=== PATIENT | male | born 1985 | race Hispanic/Latino ===

== ENCOUNTER 2019-03-04 13:47 | Emergency (ER) | payer SELFPAY | END 2019-03-04 14:39 | disposition home or self-care (01) | LOC: SCSER 13:47 | DX: R51 Headache (principal); H92.01 Otalgia, right ear; R68.84 Jaw pain; F17.210 Nicotine dependence, cigarettes, uncomplicated | CPT/HCPCS: 99282 ==

== ENCOUNTER 2023-04-09 07:24 | Emergency (ER) | payer SELFPAY ==
[2023-04-09 08:06] LABS: Hematocrit 39.9 % (42.0-52.0); Hemoglobin 13.8 g/dL (14.0-18.0); Mean Corpuscular HGB CONC 34.6 g/dL (32.0-36.0); Mean Corpuscular Hemoglobin 31.4 pg (27.0-31.0); Mean Corpuscular Volume 90.9 fl (78.0-98.0); Mean Platelet Volume 9.7 fL (7.4-10.4); RBC Distribution Width 12.5 % (11.5-14.5); Red Blood Cell (RBC) Count 4.39 mill/uL (4.70-6.10); White Blood Cell (WBC) Count 3.8 10x3/uL (4.8-10.8)
[2023-04-09] MEDS ORDERED: Ketorolac Tromethamine 30 MG/ML VIAL ONE (08:06)
[2023-04-09 08:07] LABS: Delete Auto Diff?? YES; Manual Diff?? YES; Platelet Count 87 10x3/uL (130-400)
[2023-04-09 08:30] LABS: ALT (SGPT) 98 U/L (8-55); AST (SGOT) 136 U/L (5-34); Albumin 5.1 g/dL (3.5-5.0); Alkaline Phosphatase 130 U/L (40-110); Anion Gap 16 mmol/L (10-20); BUN (Urea Nitrogen) 5 mg/dL (8.9-20.6); Bilirubin, Total 0.5 mg/dL (0.2-1.2); Calc. Creatinine Clearance 0 mL/min (70-130); Calcium 9.5 mg/dL (7.8-10.44); Carbon Dioxide 26 mmol/L (22-29); Chloride 103 mmol/L (98-107); Estimated GFR 119; Globulin 3.7 g/dL (2.4-3.5); Glucose 100 mg/dL (70-105); Lipase 109 U/L (8-78); Potassium 3.7 mmol/L (3.5-5.1); Protein, Total 8.8 g/dL (6.0-8.3); Sodium 141 mmol/L (136-145)
[2023-04-09 09:07] LABS: Band 1 % (5-11); CellaVision Operator ID LAB.GE; Eosinophils 3 % (0-10); Lymphocytes 26 % (21-51); Monocytes 9 % (0-10); Neutrophil 51 % (42-75); Platelet Adequacy Comment Platelets Decreased; Polychromasia SLIGHT = 2-3 cells HPF (0-2); Reactive Lymphocytes 8 % (0-10); Total Cell Count 100
== END 2023-04-09 08:58 | disposition home or self-care (01) ==
LOC: ERS 07:24
DX: S30.1XXA Contusion of abdominal wall, initial encounter (principal); F17.210 Nicotine dependence, cigarettes, uncomplicated
CPT/HCPCS: 36415; 80053; 83690; 85025; 96372; 99284; J1885

== ENCOUNTER 2024-12-03 07:43 | Inpatient (IN) | payer SELFPAY ==
[2024-12-03 08:04] LABS: #Basophils 0.07 10x3/uL (0.0-0.2); #Monocytes 0.58 10x3/uL (0.11-0.59); #Neutrophils 3.81 10x3/uL (1.40-6.50); %Basophils 1.1 % (0.0-1.0); %Eosinophils 1.5 % (0.0-10.0); %Lymphocytes 29.5 % (21.0-51.0); %Monocytes 8.9 % (0.0-10.0); %Neutrophils 58.7 % (42.0-75.0); Hematocrit 41.6 % (42.0-52.0); Hemoglobin 14.3 g/dL (14.0-18.0); Mean Corpuscular HGB CONC 34.4 g/dL (32.0-36.0); Mean Corpuscular Hemoglobin 29.7 pg (27.0-31.0); Mean Corpuscular Volume 86.3 fL (78.0-98.0); Mean Platelet Volume 10.4 fL (7.4-10.4); Platelet Count 153 10x3/uL (130-400); RBC Distribution Width 13.7 % (11.5-14.5); Red Blood Cell (RBC) Count 4.82 mill/uL (4.70-6.10)
[2024-12-03 08:20] LABS: ALT (SGPT) 135 U/L (Less than 45); AST (SGOT) 136 U/L (11-34); Albumin 4.4 g/dL (3.1-4.5); Alkaline Phosphatase 126 U/L (40-110); Anion Gap 17 mmol/L (10-20); BUN (Urea Nitrogen) 5 mg/dL (8.9-20.6); Bilirubin, Total 0.9 mg/dL (0.3-1.2); Calc. Creatinine Clearance 0 mL/min (70-130); Calcium 9.3 mg/dL (7.8-10.44); Carbon Dioxide 21 mmol/L (22-29); Chloride 104 mmol/L (98-107); Estimated GFR 118; Globulin 4.4 g/dL (2.4-3.5); Glucose 88 mg/dL (70-105); Potassium 3.5 mmol/L (3.5-5.1); Protein, Total 8.8 g/dL (6.0-8.3); Sodium 138 mmol/L (136-145)
[2024-12-03 09:01] LABS: Lipase 38 U/L (8-78)
[2024-12-03 09:03] LABS: Acetaminophen Less than 10 mcg/mL (Less than 10); Alcohol 102.8 mg/dL (Less than 10); Salicylate Less than 8.0 mg/dL (Less than 8.0)
[2024-12-03] MEDS ORDERED: Lorazepam 2 MG/ML VIAL ONE (09:16)
[2024-12-03] MEDS ORDERED: chlordiazePOXIDE HCl 25 MG CAP ONE (09:18)
[2024-12-03] MEDS ORDERED: Acetaminophen 325 MG TAB PO PRN (11:29)
[2024-12-03] MEDS ORDERED: Lorazepam 2 MG/ML VIAL IM PRN (11:29)
[2024-12-03] MEDS ORDERED: Lorazepam 1 MG TAB PO PRN (11:29)
[2024-12-03] MEDS ORDERED: Electrolyte Replacement Protocol 1 EACH FS SCH (11:30)
[2024-12-03] MEDS ORDERED: Electrolyte Replacement Protocol FS PRN (12:15)
[2024-12-03] MEDS: Multivitamins, Adult 10 ML, Thiamine HCl 100 MG, Folic Acid 1 MG in Dextrose 5 %-0.45 %... IV SCH (12:40)
[2024-12-03] MEDS: Lorazepam 1 MG TAB PO SCH (12:40)
[2024-12-03 13:22] LABS: Amphetamine Negative (Negative); Barbiturates Screen Negative (Negative); Benzodiazepine Screen PRELIM POSITIVE (Negative); Cocaine Metabolite Screen Negative (Negative); Methadone Negative (Negative); Methamphetamine Negative (Negative); Opiate Screen Negative (Negative); Oxycodone Screen Negative (Negative); Phencyclidine (PCP) Negative (Negative); THC/Cannabinoid Screen Negative (Negative); Tricyclic Screen Negative (Negative)
[2024-12-03 13:51] VITALS: BMI 29.8
[2024-12-03] MEDS: chlordiazePOXIDE HCl 25 MG CAP PO SCH (14:16)
[2024-12-03] MEDS: Thiamine HCl 200 MG/2 ML VIAL SLOW IVP SCH (14:16)
[2024-12-03] MEDS: Lactated Ringer's 1,000 ML IV SCH (14:16)
[2024-12-03] MEDS: Ondansetron PF 4 MG/2 ML Vial IVP PRN (14:16)
[2024-12-03] MEDS: Potassium Chloride 20 MEQ TAB PO SCH (15:59)
[2024-12-03] MEDS ORDERED: Melatonin 3 MG TAB PO PRN (19:48)
[2024-12-03] MEDS: Famotidine 20 MG TAB PO SCH (20:37)
[2024-12-04 05:30] LABS: #Basophils 0.05 10x3/uL (0.0-0.2); #Eosinophils 0.26 10x3/uL (0.0-0.7); #Monocytes 0.49 10x3/uL (0.11-0.59); #Neutrophils 2.83 10x3/uL (1.40-6.50); %Basophils 1.1 % (0.0-1.0); %Eosinophils 5.5 % (0.0-10.0); %Lymphocytes 23.4 % (21.0-51.0); %Monocytes 10.3 % (0.0-10.0); %Neutrophils 59.5 % (42.0-75.0); Hematocrit 40.3 % (42.0-52.0); Hemoglobin 13.8 g/dL (14.0-18.0); Mean Corpuscular HGB CONC 34.2 g/dL (32.0-36.0); Mean Corpuscular Hemoglobin 30.5 pg (27.0-31.0); Mean Corpuscular Volume 89.2 fL (78.0-98.0); Mean Platelet Volume 10.5 fL (7.4-10.4); Platelet Count 111 10x3/uL (130-400); RBC Distribution Width 13.5 % (11.5-14.5); Red Blood Cell (RBC) Count 4.52 mill/uL (4.70-6.10); White Blood Cell (WBC) Count 4.75 10x3/uL (4.8-10.8)
[2024-12-04 05:57] LABS: Phosphorus 2.1 mg/dL (2.5-4.5)
[2024-12-04 06:00] LABS: Platelet Adequacy Comment Platelets Decreased; RBC Morphology Within Normal Limits
[2024-12-04 06:02] LABS: ALT (SGPT) 98 U/L (Less than 45); AST (SGOT) 92 U/L (11-34); Alkaline Phosphatase 106 U/L (40-110); Anion Gap 13 mmol/L (10-20); BUN (Urea Nitrogen) 8 mg/dL (8.9-20.6); Bilirubin, Total 1.6 mg/dL (0.3-1.2); Calc. Creatinine Clearance 172 mL/min (70-130); Calcium 9.1 mg/dL (7.8-10.44); Carbon Dioxide 21 mmol/L (22-29); Chloride 104 mmol/L (98-107); Estimated GFR 120; Globulin 3.6 g/dL (2.4-3.5); Glucose 90 mg/dL (70-105); Magnesium 1.7 mg/dL (1.6-2.6); Potassium 3.9 mmol/L (3.5-5.1); Protein, Total 7.6 g/dL (6.0-8.3); Sodium 134 mmol/L (136-145)
[2024-12-04] MEDS: Magnesium 2 GM/50 ML(in water) 2 GM in Premix 1 BAG IVPB SCH (09:43)
[2024-12-04] MEDS: Enoxaparin 40 MG (0.4 mL) SYRINGE SC SCH (09:44)
[2024-12-04] MEDS: Multivit, Therapeutic 1 TAB PO SCH (09:44)
[2024-12-04] MEDS: Folic Acid 1 MG TAB PO SCH (09:44)
[2024-12-04] MEDS ORDERED: Lorazepam 1 MG TAB PO PRN (11:29)
[2024-12-05 09:31] VITALS: BP 150/91; TEMP 98.2
[2024-12-05] MEDS ORDERED: Lorazepam 1 MG TAB PO PRN (11:29)
[2024-12-05] MEDS: Lorazepam 0.5 MG TAB PO SCH (11:35)
[2024-12-06] MEDS ORDERED: Thiamine 100 MG TAB PO SCH (09:00)
[2024-12-06] MEDS ORDERED: Lorazepam 0.5 MG TAB PO PRN (11:29)
== END 2024-12-05 15:21 | disposition home or self-care (01) | DRG 897 ==
LOC: ERS 07:43 → OBSVTOIN 11:33 → MSONC 11:33
PROVIDERS: ADMIT Internal Medicine; ATTEND Family Medicine
PROC: HZ2ZZZZ Detoxification Services for Substance Abuse Treatment (ICD-10-PCS; principal; 2024-12-03)
DX: F10.239 Alcohol dependence with withdrawal, unspecified (principal); I48.91 Unspecified atrial fibrillation; Z98.890 Other specified postprocedural states; F12.90 Cannabis use, unspecified, uncomplicated; H91.8X1 Other specified hearing loss, right ear; F17.200 Nicotine dependence, unspecified, uncomplicated
CPT/HCPCS: 36415; 76705; 80053; 80306; 80307; 83690; 83735; 84100; 85025; 93005; 96374; 96375; J1650; J2060; J2405; J3411; J3475; J7042; J7120